=== PATIENT | male | born 1960 | race Caucasian/White ===

== ENCOUNTER 2019-07-02 15:29 | Emergency (ER) | payer BC ==
[2019-07-02] MEDS ORDERED: Furosemide 40 MG/4 ML VIAL IVPUSH ONE (15:55)
[2019-07-02] MEDS ORDERED: Sodium Chloride 0.9% 10 ML Syringe FLUSH PRN (15:55)
--- NOTE | 2019-07-02 15:58 | EDM.PDOC ---
ED HPI GENERAL MEDICAL PROBLEM - General Chief Complaint: Cardiovascular Problem Stated Complaint: LOW BLOOD PRESSURE Time Seen by Provider: 07/02/19 15:51 Source of Information: Reports: Patient, Family (spouse) History Limitations: Reports: No Limitations - History of Present Illness INITIAL COMMENTS - FREE TEXT/NARRATIVE: 58-year-old male presents to the ED in the company with his and daughter. He reports that he's been on chemotherapy for 3 years for prostate cancer and this was discontinued 3 weeks ago because he is considered cleared. Oncologist is Dr. Crowell. Apparently PET scan done recently was completely normal. He is scheduled for an MRI on July 09. He can no longer walk because his legs are so swollen. His lightheaded dizzy with standing. He has marked orthopnea and has been sleeping sitting up in the easy chair or propped up on the couch for the last 3 weeks. He does have a nonproductive cough. Short of breath on minimal exertion. He indicates that his scrotum and penis are grossly swollen but he can still pass his bowels okay. No diarrhea. He does not appreciate that his abdominal girth is grossly distended but his states that it's much more than normal. His legs are grossly swollen and oozing serous material. The left is slightly worse on the right. They came because his legs are becoming more swollen. Patient never did receive any radiation therapy for his prostate cancer. Only chemotherapy with pills and hormone shots. Onset: Gradual Onset Date: 06/11/19 (Gradually increasing edema lower extremities and abdomen scrotum and penis over the last 3 weeks.) Duration: Week(s):, Getting Worse Location: Reports: Generalized (Generalized edema of the lower extremities and abdomen i.e. anasarca.) Quality: Reports: Other (Both legs ache and throb due to pressure of edema. There are also losing serous fluid.) Severity: Severe Improves with: Reports: None Worsens with: Reports: None Context: Denies: Activity, Exercise, Lifting, Sick Contact, Trauma Associated Symptoms: Reports: Cough, Loss of Appetite, Malaise, Shortness of Breath, Weakness. 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 Taken off chemotherapy after 3 years of treatment 3 weeks ago. PET scan was apparently negative and he is considered cured at this time.) Social & Family History - Living Situation & Occupation Living situation: Reports: Occupation: Disabled ED ROS GENERAL - Review of Systems Review Of Systems: See Below Constitutional: Reports: Malaise, Weakness, Fatigue, Decreased Appetite, Weight Gain. Denies: Fever, Chills HEENT: Reports: No Symptoms Respiratory: Reports: Shortness of Breath, Wheezing, Cough. Denies: Pleuritic Chest Pain, Sputum, Hemoptysis (Nonproductive) Cardiovascular: Reports: Blood Pressure Problem, Dyspnea on Exertion ( swelling compatible with ascites.), Edema (Anasarca with severe swelling of his lower extremities scrotum and penis and abdominal), Lightheadedness, Orthopnea, Other (His feet are so swollen he is unable to walk.). Denies: Chest Pain, Claudication (Usually runs high but lately has been running very low.) Endocrine: Reports: Fatigue GI/Abdominal: Reports: Abdominal Pain (Abdominal pressure.), Decreased Appetite , Distension. Denies: Anorexia, Black Stool, Bloody Stool, Constipation, Diarrhea, Difficulty Swallowing, Flatus, Hematemesis, Hematochezia, Melena, Vomiting, Other : Reports: No Symptoms Musculoskeletal: Reports: Joint Swelling (Knees and feet and ankles are so swollen and he can no longer weight-bear.) Skin: Reports: Mottled, Pallor (Mottled appearance to the left lower extremity.) , Other (Severe swelling of both lower extremities to the point it appears that his legs are almost going to burst. They are oozing clear fluid.). Denies: Jaundice, Diaphoresis ( To the right lower extremity due to severe edema.), Dryness, Bruising, Pruritis, Rash, Erythema, Wound, Burn(s) Neurological: Reports: No Symptoms Psychiatric: Reports: No Symptoms Hematologic/Lymphatic: Reports: No Symptoms Immunologic: Reports: No Symptoms ED EXAM, GENERAL - Physical Exam Exam: See Below Exam Limited By: No Limitations General Appearance: Alert, WD/WN, Moderate Distress, Other (Vital signs reveal he is afebrile with a temperature 36.9. Pulse is 94 and sinus respiratory distress 13. BP is 95/65 with pulse ox of 95.) Eye Exam: Bilateral Eye: Normal Inspection (No scleral icterus. Mild pallor) Throat/Mouth: Other (Tongue is extremely dry and shriveled and beefy red in color.) Head: Atraumatic, Normocephalic. No: Facial Swelling, Facial Tenderness Neck: Normal Inspection, Supple, Non-Tender, Full Range of Motion. No: Lymphadenopathy (L), Lymphadenopathy (R) Respiratory/Chest: No Respiratory Distress, Lungs Clear, Normal Breath Sounds, No Accessory Muscle Use. No: Chest Non-Tender, Respiratory Distress Cardiovascular: No Murmur, No Rub. No: Normal Peripheral Pulses, No Edema, No Gallop, No JVD Peripheral Pulses: 0: Popliteal (L) (No pulses are palpable below the femorals due to gross edema both lower extremities.), Popliteal (R), Posterior Tibial (L) , Posterior Tibial (R), Dorsalis Pedis (L), Dorsalis Pedis (R) GI/Abdominal: Distended (Very quiet acid bowel sounds. Abdominal wall is grossly distended with peau d'orange thickening of the lower abdominal wall compatible with ascites.), Abnormal Bowel Sounds (Male) Exam: Other (The scrotum and penis are grossly edematous as well due to anasarca and fluid retention) Back Exam: Normal Inspection, Decreased Range of Motion. No: CVA Tenderness (L) , CVA Tenderness (R) Extremities: Other (Patient has anasarca with gross edema up into the thighs bilaterally involving the groin and lower abdomen. The right leg is very pale in color due to gross edema with some vesicles forming on the medial surface and slight oozing of serous material. The left leg shows more mottled pallor appearance but is grossly edematous as is the foot and ankle with edema up into the thigh all the way up into the abdomen.) Neurological: Alert, Oriented, CN II-XII Intact, Normal Cognition Psychiatric: Normal Affect, Normal Mood Skin Exam: Warm, Dry, Intact, Other (Pallor in his lower extremities.) EKG INTERPRETATION EKG Date: 07/02/19 Time: 15:58 Rhythm: NSR Rate (Beats/Min): 90 [place]: RAD-Right [place] Deviation (Mild right axis deviation of 93) P-Wave: Present ST-T: Depressed (ST segment is depressed V3 V4 with repolarization abnormality V5 V6 and also in the limb leads.) QT: Prolonged (Moderately prolonged) EKG Interpretation Comments: Abnormal ECG. Course - Vital Signs Last Recorded V/S: Last Vital Signs Temp 36.9 C 07/02/19 15:46 Pulse 94 07/02/19 15:46 Resp 13 07/02/19 15:46 BP 95/65 07/02/19 15:46 Pulse Ox 95 07/02/19 15:46 Orthostatic Blood Pressure [ 121/102 Standing] Orthostatic Blood Pressure [ 90/70 Sitting] Orthostatic Blood Pressure [ 92/52 Supine] - Orders/Labs/Meds Orders: Active Orders 24 hr Category Date Time Status EKG Documentation Completion [RC] STAT Care 07/02/19 15:52 Active Liang Catheter Insertion [Insert Urinary Catheter] [OM. Care 07/02/19 19:45 Ordered PC] Q24H Orthostatic Vital Signs [RC] ASDIRECTED Care 07/02/19 15:41 Active Oxygen Therapy [RC] ASDIRECTED Care 07/02/19 15:53 Active Oxygen Therapy [RC] ASDIRECTED Care 07/02/19 18:57 Active Peripheral IV Care [RC] . DIRECTED Care 07/02/19 15:55 Active Urinary Catheter Assessment [RC] ASDIRECTED Care 07/02/19 19:33 Active URINALYSIS W/MICROSCOPIC [UA W/MICROSCOPIC] [URIN] Stat Lab 07/02/19 15:54 Ordered Norepinephrine [Levophed] 4 mg Med 07/02/19 18:15 Active Dextrose 5% in Water 246 ml IV TITRATE Sodium Chloride 0.9% [Normal Saline] 1,000 ml Med 07/02/19 16:30 Active IV ASDIRECTED Sodium Chloride 0.9% [Saline Flush] Med 07/02/19 15:55 Active 10 ml FLUSH ASDIRECTED PRN Peripheral IV Insertion Adult [OM.PC] Stat Oth 07/02/19 15:55 Ordered Medication Orders Sodium Chloride (Normal Saline) 1,000 mls @ 125 mls/hr IV ASDIRECTED KRYSTYNA Last Admin: 07/02/19 17:40 Dose: 125 mls/hr Norepinephrine Bitartrate 4 mg (/ Dextrose/Water) 250 mls @ 15 mls/hr IV TITRATE KRYSTYNA Last Admin: 07/02/19 18:50 Dose: 4 mcg/min, 15 mls/hr Sodium Chloride (Saline Flush) 10 ml FLUSH ASDIRECTED PRN PRN Reason: Keep Vein Open Last Admin: 07/02/19 16:17 Dose: 10 ml Labs: Laboratory Tests 07/02/19 07/02/19 07/02/19 Range/Units 15:49 15:49 15:49 WBC 9.54 H (4.23-9.07) K/mm3 RBC 5.42 (4.63-6.08) M/mm3 Hgb 17.3 (13.7-17.5) gm/dl Hct 49.0 (40.1-51.0) % MCV 90.4 (79.0-92.2) fl MCH 31.9 (25.7-32.2) pg MCHC 35.3 (32.2-35.5) g/dl RDW Std Deviation 44.8 H (35.1-43.9) fL Plt Count 205 (163-337) K/mm3 MPV 10.9 (9.4-12.3) fl Neut % (Auto) 85.6 H (34.0-67.9) % Lymph % (Auto) 7.7 L (21.8-53.1) % [place] % (Auto) 5.7 (5.3-12.2) % Eos % (Auto) 0.1 L (0.8-7.0) Baso % (Auto) 0.1 (0.1-1.2) % Neut # (Auto) 8.17 H (1.78-5.38) K/mm3 Lymph # (Auto) 0.73 L (1.32-3.57) K/mm3 [place] # (Auto) 0.54 (0.30-0.82) K/mm3 Eos # (Auto) 0.01 L (0.04-0.54) K/mm3 Baso # (Auto) 0.01 (0.01-0.08) K/mm3 Manual Slide Review Abnormal smear ESR (0-15) mm/hr PT 11.1 (9.7-12.0) SECONDS INR 1.02 APTT 24 (22-31) SECONDS Sodium 133 L (136-145) mEq/L Potassium 2.8 L (3.5-5.1) mEq/L Chloride 91 L (98-107) mEq/L Carbon Dioxide 24 (21-32) mEq/L Anion Gap 20.8 H (5-15) BUN 93 H (7-18) mg/dL Creatinine 4.6 H (0.7-1.3) mg/dL Est Cr Clr Drug Dosing 16.93 mL/min Estimated GFR (MDRD) 13 (>60) mL/min BUN/Creatinine Ratio 20.2 H (14-18) Glucose 225 H (74-106) mg/dL Lactic Acid (0.4-2.0) mmol/L Calcium 7.4 L (8.5-10.1) mg/dL Magnesium 3.1 H (1.8-2.4) mg/dl Total Bilirubin 1.2 H (0.2-1.0) mg/dL AST 34 (15-37) U/L ALT 86 H (16-63) U/L Alkaline Phosphatase 59 (46-116) U/L Troponin I < 0.017 (0.00-0.056) ng/mL C-Reactive Protein 24.0 H* (<1.0) mg/dL NT-Pro-B Natriuret Pep (0-125) pg/mL Total Protein 5.9 L (6.4-8.2) g/dl Albumin 2.3 L (3.4-5.0) g/dl Globulin 3.6 gm/dL Albumin/Globulin Ratio 0.6 L (1-2) Prostate Specific Ag (0.1-4.0) ng/mL 07/02/19 07/02/19 07/02/19 Range/Units 15:49 15:49 17:58 WBC (4.23-9.07) K/mm3 RBC (4.63-6.08) M/mm3 Hgb (13.7-17.5) gm/dl Hct (40.1-51.0) % MCV (79.0-92.2) fl MCH (25.7-32.2) pg MCHC (32.2-35.5) g/dl RDW Std Deviation (35.1-43.9) fL Plt Count (163-337) K/mm3 MPV (9.4-12.3) fl Neut % (Auto) (34.0-67.9) % Lymph % (Auto) (21.8-53.1) % [place] % (Auto) (5.3-12.2) % Eos % (Auto) (0.8-7.0) Baso % (Auto) (0.1-1.2) % Neut # (Auto) (1.78-5.38) K/mm3 Lymph # (Auto) (1.32-3.57) K/mm3 [place] # (Auto) (0.30-0.82) K/mm3 Eos # (Auto) (0.04-0.54) K/mm3 Baso # (Auto) (0.01-0.08) K/mm3 Manual Slide Review ESR 14 (0-15) mm/hr PT (9.7-12.0) SECONDS INR APTT (22-31) SECONDS Sodium (136-145) mEq/L Potassium (3.5-5.1) mEq/L Chloride (98-107) mEq/L Carbon Dioxide (21-32) mEq/L Anion Gap (5-15) BUN (7-18) mg/dL Creatinine (0.7-1.3) mg/dL Est Cr Clr Drug Dosing mL/min Estimated GFR (MDRD) (>60) mL/min BUN/Creatinine Ratio (14-18) Glucose (74-106) mg/dL Lactic Acid (0.4-2.0) mmol/L Calcium (8.5-10.1) mg/dL Magnesium (1.8-2.4) mg/dl Total Bilirubin (0.2-1.0) mg/dL AST (15-37) U/L ALT (16-63) U/L Alkaline Phosphatase (46-116) U/L Troponin I (0.00-0.056) ng/mL C-Reactive Protein (<1.0) mg/dL NT-Pro-B Natriuret Pep 787 H (0-125) pg/mL Total Protein (6.4-8.2) g/dl Albumin (3.4-5.0) g/dl Globulin gm/dL Albumin/Globulin Ratio (1-2) Prostate Specific Ag 0.3 (0.1-4.0) ng/mL 07/02/19 Range/Units 18:11 WBC (4.23-9.07) K/mm3 RBC (4.63-6.08) M/mm3 Hgb (13.7-17.5) gm/dl Hct (40.1-51.0) % MCV (79.0-92.2) fl MCH (25.7-32.2) pg MCHC (32.2-35.5) g/dl RDW Std Deviation (35.1-43.9) fL Plt Count (163-337) K/mm3 MPV (9.4-12.3) fl Neut % (Auto) (34.0-67.9) % Lymph % (Auto) (21.8-53.1) % [place] % (Auto) (5.3-12.2) % Eos % (Auto) (0.8-7.0) Baso % (Auto) (0.1-1.2) % Neut # (Auto) (1.78-5.38) K/mm3 Lymph # (Auto) (1.32-3.57) K/mm3 [place] # (Auto) (0.30-0.82) K/mm3 Eos # (Auto) (0.04-0.54) K/mm3 Baso # (Auto) (0.01-0.08) K/mm3 Manual Slide Review ESR (0-15) mm/hr PT (9.7-12.0) SECONDS INR APTT (22-31) SECONDS Sodium (136-145) mEq/L Potassium (3.5-5.1) mEq/L Chloride (98-107) mEq/L Carbon Dioxide (21-32) mEq/L Anion Gap (5-15) BUN (7-18) mg/dL Creatinine (0.7-1.3) mg/dL Est Cr Clr Drug Dosing mL/min Estimated GFR (MDRD) (>60) mL/min BUN/Creatinine Ratio (14-18) Glucose (74-106) mg/dL Lactic Acid 7.8 H (0.4-2.0) mmol/L Calcium (8.5-10.1) mg/dL Magnesium (1.8-2.4) mg/dl Total Bilirubin (0.2-1.0) mg/dL AST (15-37) U/L ALT (16-63) U/L Alkaline Phosphatase (46-116) U/L Troponin I (0.00-0.056) ng/mL C-Reactive Protein (<1.0) mg/dL NT-Pro-B Natriuret Pep (0-125) pg/mL Total Protein (6.4-8.2) g/dl Albumin (3.4-5.0) g/dl Globulin gm/dL Albumin/Globulin Ratio (1-2) Prostate Specific Ag (0.1-4.0) ng/mL Meds: Medications Generic Name Dose Route Start Last Admin Trade Name Freq PRN Reason Stop Dose Admin Sodium Chloride 1,000 mls @ 125 mls/hr 07/02/19 16:30 07/02/19 17:40 Normal Saline IV 125 mls/hr ASDIRECTED KRYSTYNA Administration Norepinephrine Bitartrate 4 mg 250 mls @ 15 mls/hr 07/02/19 18:15 07/02/19 18 :50 / Dextrose/Water IV 4 mcg/min TITRATE KRYSTYNA 15 mls/hr Administration 4 MCG/MIN Sodium Chloride 10 ml 07/02/19 15:55 07/02/19 16:17 Saline Flush FLUSH 10 ml ASDIRECTED PRN Administration Keep Vein Open Discontinued Medications Generic Name Dose Route Start Last Admin Trade Name Freq PRN Reason Stop Dose Admin Furosemide 60 mg 07/02/19 15:55 07/02/19 16:15 Lasix IVPUSH 07/02/19 15:56 60 mg NOW ONE Administration Potassium Chloride 10 meq/ 100 mls @ 100 mls/hr 07/02/19 17:45 07/02/19 17:55 Premix IV 07/02/19 18:44 100 mls/hr ONETIME ONE Administration Meropenem 1 gm/ Sodium 100 mls @ 200 mls/hr 07/02/19 18:15 07/02/19 19:12 Chloride IV 07/02/19 18:44 200 mls/hr ONETIME ONE Administration Lidocaine HCl 10 ml 07/02/19 19:33 07/02/19 20:01 Xylocaine 2% Jelly MUCMEM 07/02/19 19:34 Not Given ONETIME ONE Metoclopramide HCl 7.5 mg 07/02/19 18:05 07/02/19 18:47 Reglan IVPUSH 07/02/19 18:06 7.5 mg ONETIME ONE Administration - Radiology Interpretation Free Text/Narrative:: 58-year-old male presents the ED with gross swelling and edema of the lower extremities scrotum penis and abdomen compatible with ascites. The patient has anasarca. It's unclear if he's gone into acute renal failure versus hepatic failure versus cardiac failure. Saline lock started. Given Lasix 60 mg IV. We' ll start him on 3 L of oxygen per nasal cannula. Blood pressure is 95/65. I will run an IV at 125 mils per hour. She will have labs completed but this time no need for septic workup. I'm going to give him 60 mg of Lasix IV. Clinically he appears to be intravascularly depleted but likely severely hypoproteinemic to be leaking fluid into his abdomen and his extremities. - Re-Assessments/Exams Free Text/Narrative Re-Assessment/Exam: 07/02/19 16:38 chest x-ray reveals nodular densities within the chest which most likely represent metastatic disease. There are 2 or 3 old healed rib fractures on the right side. No acute parenchymal changes seen within the lungs. Sclerotic areas are noted within the proximal humerus as well as within the left collarbone and within the glenoid of the scapula compatible with osteoblastic metastatic disease. Heart does not appear enlarged. Upper mediastinum is within normal limits for portable technique. 07/02/19 17:33 Labs reveal a white count of 9.54 with an automated differential of 85.6% neutrophils. Slight is reported as being neutrophilic and lymphopenia. No band cells reported. Hemoglobin is 17.3 with hematocrit of 49.0 by with some degree of hemoconcentration. Platelet count is 205,000. Sedimentation rate is 14 PT is 11.1 with an INR 1.02. PTT is 24.. Sodium is low at 133 potassium is low at 2.8. Chloride is 91 with a bicarbonate of 24. And a gap is markedly elevated at 20.8. The you and is 93 with a creatinine of 4.6. GFR is 13 I stage V renal insufficiency. BUN/creatinine ratio is 20.2. Glucose is 225. Calcium is 7.4 magnesium is 3.1 markedly elevated. Bilirubin is 1.2 with an AST of 34 and ELT of 86. Alk phosphatase is 59. Troponin I is less than 0.017. C-reactive protein is elevated at 24.0. BNP is elevated at 787. Total protein is low at 5.9 with an albumin fraction low at 2.3. Urinalysis is pending. 07/02/19 18:00; I did speak with hospitalist at [facility] in [place] and he asked me to check with the patient whether or not he was still taking his Lasix and losartan. The patient indicates that Dr. Crowell discontinued his Lasix 3 weeks ago. He was apparently on 20 mg daily. He is still taking his losartan medication daily for hypertension. Patient has been accepted in transfer to their facility. Going to keep a close eye on his blood pressure as I 'm concerned that he may need a vasopressor. 07/02/19 18:20: Blood pressure has fallen down to as low as 65 systolic with the patient sitting on the edge of the bed. Lying is 85 systolic. Will therefore have a second line started. Have asked the lab to come and check his lactic acid and his PSA value. He will need vasopressor support and I will start him on levo fed drip at 4 mcg/m. Given Reglan 7.5 mg IV to prevent nausea . I have concerns that he may have no call to infective process contributing to his current illness although he does not have a fever. He is diaphoretic when he sits up. He still has not produced any urine after 60 mg of Lasix IV. This is concerning for him developing an area although he states he did void just before coming to the hospital. I am going to give him a dose of meropenem 1 g IV at this time as well. Problems have arisen with ability to transport him at this time. Apparently [facility] does not have a ground crew available at this time. Be looking for alternative possibilities by way of [facility]. 07/02/19 19:05 [facility] indicates that they do have ACLS capability and will be coming down to pick him up to transport him to [place]. His status will have changed as he now will become an ICU patient because of need for vasopressor support. Will call back 1 call at [facility]' the patient has been stabilized with levophed drip . Current blood pressure is 87/53 on 4 mcg/per minute. Rate will be increased 8 mcg/m. 07/02/19 19:45: I have spoken with 1 call nurse Esperanza at [facility] and then spoke to --calculator operator who has accepted care of this patient. Liang catheter replaced give us a drop of urine indicating the patient is truly anuric at this time. This may be due to his persistent hypotension. His levopfed hip is currently running at 10 mcg/m and his blood pressure the time he left the department was 90/52. The glass sander's and instructed to titrate the levo fed drip up to achieve a systolic blood pressure 110. The catheter course was left in and hooked up to urology. Departure - Departure Time of Disposition: 20:05 Disposition: DC/Tfer to [facility] 02 Reason for Transfer *Q: Other Condition: Critical Clinical Impression: Anasarca associated with disorder of kidney, Metabolic acidosis with increased anion gap and accumulation of organic acids, Lactic acid acidosis, Hypokalemia due to inadequate potassium intake, Hyponatremia, Carcinoma of prostate, Metastatic cancer Hypotension Qualifiers: Hypotension type: unspecified hypotension type Qualified Code(s): I95.9 - Hypotension, unspecified Referrals: PCP,Unknown [Ordering Only Provider] - Forms: ED Department Discharge Critical Care Note - Critical Care Note Total Time (mins): 70 - My Orders Last 24 Hours: My Active Orders 07/02/19 15:41 Orthostatic Vital Signs [RC] ASDIRECTED 07/02/19 15:52 EKG Documentation Completion [RC] STAT 07/02/19 15:53 Oxygen Therapy [RC] ASDIRECTED 07/02/19 15:54 URINALYSIS W/MICROSCOPIC [UA W/MICROSCOPIC] [URIN] Stat 07/02/19 15:55 Peripheral IV Care [RC] . DIRECTED Sodium Chloride 0.9% [Saline Flush] 10 ml FLUSH ASDIRECTED PRN Peripheral IV Insertion Adult [OM.PC] Stat 07/02/19 16:30 Sodium Chloride 0.9% [Normal Saline] 1,000 ml IV ASDIRECTED 07/02/19 18:15 Norepinephrine [Levophed] 4 mg Dextrose 5% in Water 246 ml IV TITRATE 07/02/19 18:57 Oxygen Therapy [RC] ASDIRECTED 07/02/19 19:33 Urinary Catheter Assessment [RC] ASDIRECTED 07/02/19 19:45 Liang Catheter Insertion [Insert Urinary Catheter] [OM.PC] Q24H - Assessment/Plan Last 24 Hours: My Active Orders 07/02/19 15:41 Orthostatic Vital Signs [RC] ASDIRECTED 07/02/19 15:52 EKG Documentation Completion [RC] STAT 07/02/19 15:53 Oxygen Therapy [RC] ASDIRECTED 07/02/19 15:54 URINALYSIS W/MICROSCOPIC [UA W/MICROSCOPIC] [URIN] Stat 07/02/19 15:55 Peripheral IV Care [RC] . DIRECTED Sodium Chloride 0.9% [Saline Flush] 10 ml FLUSH ASDIRECTED PRN Peripheral IV Insertion Adult [OM.PC] Stat 07/02/19 16:30 Sodium Chloride 0.9% [Normal Saline] 1,000 ml IV ASDIRECTED 07/02/19 18:15 Norepinephrine [Levophed] 4 mg Dextrose 5% in Water 246 ml IV TITRATE 07/02/19 18:57 Oxygen Therapy [RC] ASDIRECTED 07/02/19 19:33 Urinary Catheter Assessment [RC] ASDIRECTED 07/02/19 19:45 Liang Catheter Insertion [Insert Urinary Catheter] [OM.PC] Q24H
--- NOTE | 2019-07-02 16:28 | CR ---
Chest: Frontal view of the chest was obtained. Comparison: No prior chest x-rays available. Nodular densities are seen within the chest which most likely represents metastatic disease. 2 or 3 old healed rib fractures are noted on the right side. No acute parenchymal change is seen within the lungs. Sclerotic areas are noted within the proximal humerus as well as within the left clavicle and within the glenoid of the scapula compatible with osteoblastic metastasis. Heart does not appear enlarged. Upper mediastinum is within normal limits for portable technique. Impression: 1. Nodular densities within the chest likely representing pulmonary metastasis. 2. Sclerotic bony metastasis are also seen. 3. Nothing acute is otherwise seen on portable chest x-ray. Diagnostic code #9
[2019-07-02] MEDS ORDERED: Sodium Chloride 0.9% 1,000 ML IV SCH (16:30)
[2019-07-02] MEDS ORDERED: Potassium Chloride 10 MEQ in Premix Bag 1 BAG IV ONE (17:45)
[2019-07-02] MEDS ORDERED: Metoclopramide 10 MG/2 ML SDV IVPUSH ONE (18:05)
[2019-07-02] MEDS ORDERED: Meropenem 1 GM in Sodium Chloride 0.9% 100 ML IV ONE (18:15)
[2019-07-02] MEDS ORDERED: Norepinephrine 4 MG in Dextrose 5% in Water 246 ML IV SCH ×2 (18:15)
[2019-07-02] MEDS ORDERED: Lidocaine 2% Jelly 10 ML Urojet MUCMEM ONE (19:33)
== END 2019-07-02 20:00 ==
LOC: JD.ED 15:29
DX: N04.9 Nephrotic syndrome with unspecified morphologic changes (principal); I95.9 Hypotension, unspecified; E87.6 Hypokalemia; E87.1 Hypo-osmolality and hyponatremia; E87.2 Acidosis; C61 Malignant neoplasm of prostate; I10 Essential (primary) hypertension; Z79.899 Other long term (current) drug therapy
CPT/HCPCS: 36415; 51702; 71045; 80053; 83605; 83735; 83880; 84153; 84484; 85025; 85610; 85652; 85730; 86140; 93005; 96365; 96367; 96368; 96375; 99285; J1940; J2185; J2765; J3480; J7030; J7040; J7060; 93010